=== PATIENT | female | born 1930 | race Caucasian/White ===

== ENCOUNTER 2016-07-30 14:52 | Observation (INO) | payer OTHER, SELFPAY ==
[~2016-07-30] VITALS: Ht 165.1 cm; Wt 57.2 kg
[2016-07-30 17:09] LABS: HEMOGLOBIN 16.8 gm/dl (12.3-15.3); RED BLOOD COUNT 4.93 M/UL (4.00-5.10)
[2016-07-31] MEDS ORDERED: ALPHAGAN P5 ML OP (02:03)
[2016-07-31] MEDS ORDERED: GABAPENTIN100 MG PO (02:04)
[2016-07-31] MEDS ORDERED: MECLIZINE HCL12.5 MG PO (02:05)
[2016-07-31] MEDS ORDERED: ZOLOFT100 MG PO (02:05)
[2016-07-31] MEDS ORDERED: TOPROL XL 25 MG25 MG PO (02:05)
[2016-07-31] MEDS ORDERED: MACROBID 100 M100 M1 PO (02:06)
[2016-07-31] MEDS ORDERED: NAMENDA 5 MG TAB5 MG PO (02:06)
[2016-07-31] MEDS ORDERED: GLUCOPHAGE XR500 M1 PO (02:06)
[2016-07-31] MEDS ORDERED: LOTENSIN TAB 1010 MG PO (02:07)
[2016-07-31] MEDS ORDERED: LASIX20 MG PO (02:07)
[2016-07-31] MEDS ORDERED: PRAVACHOL40 MG PO (02:07)
[2016-07-31] MEDS ORDERED: VALIUM 2 MG TAB2 MG PO (02:08)
[2016-07-31] MEDS ORDERED: DIGOX125 MCG PO (02:08)
[2016-07-31] MEDS ORDERED: NORVASC 5 MG TAB5 MG PO (02:09)
[2016-07-31] MEDS ORDERED: HYDROXYUREA500 MG PO (02:10)
[2016-07-31] MEDS ORDERED: CELEBREX200 MG PO (02:11)
[2016-07-31] MEDS ORDERED: SYNTHROID100 MCG PO (02:11)
[2016-07-31] MEDS ORDERED: ZANTAC300 MG PO (02:11)
[2016-07-31] MEDS ORDERED: PLAVIX 75 MG TA75 MG PO (17:13)
[2016-07-31] MEDS ORDERED: ASPIRIN81 MG PO (17:30)
== END 2016-07-31 18:27 | disposition home or self-care (01) ==
LOC: ER1 14:52 → M/S 21:39 → ZEROF 21:39 → M/S 07-31 00:55
PROVIDERS: Physician Assistant Medical; ADMIT Internal Medicine
DX: G45.9 Transient cerebral ischemic attack, unspecified (principal); F41.9 Anxiety disorder, unspecified; E11.9 Type 2 diabetes mellitus without complications; I10 Essential (primary) hypertension; E78.5 Hyperlipidemia, unspecified; E03.9 Hypothyroidism, unspecified; F03.90 Unspecified dementia, unspecified severity, without behavioral disturbance, psychotic disturbance, mood disturbance, and anxiety; Z95.0 Presence of cardiac pacemaker; Z86.79 Personal history of other diseases of the circulatory system; Z79.82 Long term (current) use of aspirin; Z79.02 Long term (current) use of antithrombotics/antiplatelets; Z79.899 Other long term (current) drug therapy; Z88.0 Allergy status to penicillin; Z88.2 Allergy status to sulfonamides; Z91.041 Radiographic dye allergy status
CPT/HCPCS: ECHO; 36415; 70450; 71010; 80053; 80061; 80162; 81001; 82550; 82553; 82962; 83605; 83880; 84443; 84484; 85025; 87086; 93005; 93306; 93880; 96361; 96372; 96374; 96375; 96376; 97530; 99285; G0378; J0360; J1650; J2270; J2405; Q0162